=== PATIENT | male | born 1965 | race African-American/Black ===

== ENCOUNTER 2022-02-18 11:39 | Inpatient (IN) | payer SELFPAY ==
[~2022-02-18 11:39] MED LIST: Iopamidol 370 76% 100 ML VIAL ONE
[2022-02-18] MEDS ORDERED: Azithromycin 500 MG in Sodium Chloride 0.9% 250 ML 250 ML IVPB SCH (12:30)
[2022-02-18] MEDS ORDERED: cefTRIAXone\\ROCEPHIN 1 GM in Sodium Chloride 0.9% 100 ML IVPB SCH (12:30)
[2022-02-18] MEDS ORDERED: Furosemide 40 MG/4 ML VIAL SLOW IVP SCH (12:30)
[2022-02-18 13:34] LABS: CKMB 3.9 ng/mL (0-6.6)
[2022-02-18] MEDS ORDERED: FLU VACC QS2022-23(6MOS UP)/PF 60 MCG/0.5 ML SYRINGE IM ONE (14:15)
[2022-02-18] MEDS: methylPREDNISolone Sod Succ 40 MG VIAL IVP SCH (14:25)
[2022-02-18] MEDS: Heparin 5,000 UNITS/ML VIAL SC SCH ×2 (16:06→21:40)
[2022-02-18] MEDS ORDERED: Amlodipine 5 MG TAB PO SCH (17:00)
[2022-02-18 17:15] LABS: Creatinine, Urine Less than 20.00 mg/dL (63-166)
[2022-02-18] MEDS ORDERED: Piperacillin/Tazobactam 3.375 GM in Sodium Chloride 0.9% 100 ML IVPB SCH (18:00)
[2022-02-18] MEDS ORDERED: methylPREDNISolone Sod Succ 40 MG VIAL IVP SCH (18:00)
[2022-02-18] MEDS ORDERED: Furosemide 20 MG/2 ML VIAL SLOW IVP SCH (21:00)
[2022-02-18] MEDS: Famotidine 20 MG TAB PO SCH (21:15)
[2022-02-18] MEDS: Doxycycline 100 MG in Sodium Chloride 0.9% 100 ML IVPB SCH (21:16)
[2022-02-18 21:56] LABS: Potassium, Urine 16.7 mmol/L; Sodium, Urine 119 mmol/L (Not Available)
[2022-02-19] MEDS: Piperacillin/Tazobactam 3.375 GM in Sodium Chloride 0.9% 100 ML IVPB SCH ×3 (01:40→17:18)
[2022-02-19] MEDS: methylPREDNISolone Sod Succ 40 MG VIAL IVP SCH ×2 (02:11→14:38)
[2022-02-19 04:15] LABS: #Monocytes 0.7 10x3/uL (0.0-1.1); #Neutrophils 8.5 10x3/uL (1.5-8.4); %Basophils 0.2 % (0.0-2.0); %Lymphocytes 7.4 % (18.0-47.0); %Monocytes 7.3 % (0.0-10.0); %Neutrophils 84.5 % (40.0-75.0); Hemoglobin 11.4 g/dL (13.5-17.5); Mean Corpuscular Hemoglobin 28.9 pg (27.0-33.0); Mean Corpuscular Volume 90.4 fl (81.2-95.1); Mean Platelet Volume 9.1 fl (7.4-10.4); Platelet Count 321 10x3/uL (150-450); RBC Distribution Width 12.5 % (11.5-14.5); Red Blood Cell (RBC) Count 3.94 10x6/uL (4.32-5.72); White Blood Cell (WBC) Count 10.1 10x3/uL (3.5-10.5)
[2022-02-19 04:27] LABS: ALT (SGPT) 12 U/L (8-55); AST (SGOT) 13 U/L (5-34); Albumin 3.5 g/dL (3.5-5.0); Alkaline Phosphatase 55 U/L (40-110); Anion Gap 10 mmol/L (10-20); BUN (Urea Nitrogen) 17 mg/dL (8.4-25.7); Bilirubin, Total 0.3 mg/dL (0.2-1.2); Calc. Creatinine Clearance 126 mL/min (70-130); Calcium 9.3 mg/dL (7.8-10.44); Carbon Dioxide 32 mmol/L (22-29); Chloride 103 mmol/L (98-107); Estimated GFR 56; Globulin 3.3 g/dL (2.4-3.5); Glucose 164 mg/dL (70-105); Potassium 4.4 mmol/L (3.5-5.1); Protein, Total 6.8 g/dL (6.0-8.3); Sodium 141 mmol/L (136-145)
[2022-02-19] MEDS: hydrALAZINE 20 MG/ML VIAL SLOW IVP PRN (05:00)
[2022-02-19] MEDS ORDERED: cefTRIAXone\\ROCEPHIN 1 GM in Sodium Chloride 0.9% 100 ML IVPB SCH (09:30)
[2022-02-19] MEDS: Amlodipine 5 MG TAB PO SCH (10:03)
[2022-02-19] MEDS: Heparin 5,000 UNITS/ML VIAL SC SCH ×3 (10:06→20:48)
[2022-02-19] MEDS: Famotidine 20 MG TAB PO SCH ×2 (10:17→20:36)
[2022-02-19] MEDS ORDERED: Sodium Chloride 0.9% 100 ML ONE (10:19)
[2022-02-19] MEDS ORDERED: Azithromycin 500 MG in Sodium Chloride 0.9% 250 ML 250 ML IVPB SCH (10:30)
[2022-02-19] MEDS: Doxycycline 100 MG in Sodium Chloride 0.9% 100 ML IVPB SCH ×2 (12:05→22:30)
[2022-02-19] MEDS: Furosemide 40 MG/4 ML VIAL SLOW IVP SCH (14:39)
[2022-02-19 15:44] LABS: Legionella Urinary Ag Negative (Negative); Strep pneumo Urine Ag NEGATIVE (NEGATIVE)
[2022-02-20] MEDS: hydrALAZINE 20 MG/ML VIAL SLOW IVP PRN ×2 (01:14→05:52)
[2022-02-20] MEDS: Piperacillin/Tazobactam 3.375 GM in Sodium Chloride 0.9% 100 ML IVPB SCH ×4 (03:12→17:49)
[2022-02-20] MEDS: methylPREDNISolone Sod Succ 40 MG VIAL IVP SCH (03:12)
[2022-02-20 04:26] LABS: #Eosinphils 0.1 10x3/uL (0.0-0.5); #Monocytes 1.4 10x3/uL (0.0-1.1); #Neutrophils 8.3 10x3/uL (1.5-8.4); %Basophils 0.2 % (0.0-2.0); %Lymphocytes 11.4 % (18.0-47.0); %Monocytes 12.7 % (0.0-10.0); %Neutrophils 74.3 % (40.0-75.0); Hemoglobin 11.7 g/dL (13.5-17.5); Mean Corpuscular HGB CONC 32.4 g/dL (32.0-36.0); Mean Corpuscular Hemoglobin 29.1 pg (27.0-33.0); Mean Corpuscular Volume 89.8 fl (81.2-95.1); Mean Platelet Volume 9.1 fl (7.4-10.4); Platelet Count 343 10x3/uL (150-450); RBC Distribution Width 12.7 % (11.5-14.5); Red Blood Cell (RBC) Count 4.02 10x6/uL (4.32-5.72); White Blood Cell (WBC) Count 11.2 10x3/uL (3.5-10.5)
[2022-02-20 04:35] LABS: Anion Gap 13 mmol/L (10-20); BUN (Urea Nitrogen) 25 mg/dL (8.4-25.7); Calc. Creatinine Clearance 115 mL/min (70-130); Calcium 9.5 mg/dL (7.8-10.44); Carbon Dioxide 31 mmol/L (22-29); Chloride 103 mmol/L (98-107); Estimated GFR 54; Glucose 178 mg/dL (70-105); Sodium 143 mmol/L (136-145)
[2022-02-20] MEDS: Furosemide 40 MG/4 ML VIAL SLOW IVP SCH ×2 (05:52→14:32)
[2022-02-20] MEDS: Famotidine 20 MG TAB PO SCH ×2 (08:45→21:42)
[2022-02-20] MEDS: Heparin 5,000 UNITS/ML VIAL SC SCH ×3 (08:46→21:42)
[2022-02-20] MEDS: Amlodipine 5 MG TAB PO SCH (08:46)
[2022-02-20] MEDS: Doxycycline 100 MG in Sodium Chloride 0.9% 100 ML IVPB SCH (08:47)
[2022-02-20] MEDS ORDERED: Doxycycline 100 MG CAP PO SCH (11:00)
[2022-02-20] MEDS: Doxycycline 100 MG CAP PO SCH (21:42)
[2022-02-21] MEDS: Piperacillin/Tazobactam 3.375 GM in Sodium Chloride 0.9% 100 ML IVPB SCH ×3 (02:08→18:16)
[2022-02-21] MEDS: HYDROcodone/Acetaminophen 10/325 mg Tablet PO PRN ×4 (04:04→21:12)
[2022-02-21 04:52] LABS: #Basophils 0.1 10x3/uL (0.0-0.2); #Eosinphils 0.1 10x3/uL (0.0-0.5); #Monocytes 1.3 10x3/uL (0.0-1.1); #Neutrophils 5.7 10x3/uL (1.5-8.4); %Basophils 0.5 % (0.0-2.0); %Eosinophils 1.1 % (0.0-6.0); %Lymphocytes 24.4 % (18.0-47.0); %Monocytes 13.2 % (0.0-10.0); %Neutrophils 60.2 % (40.0-75.0); Hemoglobin 11.7 g/dL (13.5-17.5); Mean Corpuscular HGB CONC 32.1 g/dL (32.0-36.0); Mean Corpuscular Hemoglobin 28.8 pg (27.0-33.0); Mean Corpuscular Volume 89.9 fl (81.2-95.1); Mean Platelet Volume 9.3 fl (7.4-10.4); Platelet Count 370 10x3/uL (150-450); Red Blood Cell (RBC) Count 4.06 10x6/uL (4.32-5.72); White Blood Cell (WBC) Count 9.5 10x3/uL (3.5-10.5)
[2022-02-21 04:54] LABS: Anion Gap 14 mmol/L (10-20); BUN (Urea Nitrogen) 21 mg/dL (8.4-25.7); Calc. Creatinine Clearance 120 mL/min (70-130); Calcium 9.3 mg/dL (7.8-10.44); Carbon Dioxide 33 mmol/L (22-29); Chloride 103 mmol/L (98-107); Estimated GFR 57; Glucose 93 mg/dL (70-105); Potassium 3.5 mmol/L (3.5-5.1); Sodium 146 mmol/L (136-145)
[2022-02-21] MEDS: Furosemide 40 MG/4 ML VIAL SLOW IVP SCH ×2 (05:49→15:27)
[2022-02-21] MEDS: Heparin 5,000 UNITS/ML VIAL SC SCH ×4 (08:16→21:18)
[2022-02-21] MEDS: Doxycycline 100 MG CAP PO SCH ×2 (08:18→21:12)
[2022-02-21] MEDS: Amlodipine 5 MG TAB PO SCH (08:18)
[2022-02-21] MEDS: Famotidine 20 MG TAB PO SCH ×2 (08:18→21:00)
[2022-02-22] MEDS: Piperacillin/Tazobactam 3.375 GM in Sodium Chloride 0.9% 100 ML IVPB SCH ×3 (01:40→18:08)
[2022-02-22] MEDS: HYDROcodone/Acetaminophen 10/325 mg Tablet PO PRN ×3 (05:51→18:08)
[2022-02-22] MEDS: Furosemide 40 MG/4 ML VIAL SLOW IVP SCH ×2 (05:52→14:01)
[2022-02-22] MEDS: Amlodipine 5 MG TAB PO SCH (08:12)
[2022-02-22] MEDS: Heparin 5,000 UNITS/ML VIAL SC SCH ×3 (08:12→20:34)
[2022-02-22] MEDS: Doxycycline 100 MG CAP PO SCH ×2 (08:12→20:34)
[2022-02-22] MEDS: Famotidine 20 MG TAB PO SCH ×2 (08:13→20:34)
[2022-02-22 08:27] VITALS: BMI 46.5
[2022-02-22] MEDS: hydrALAZINE 20 MG/ML VIAL SLOW IVP PRN ×3 (14:01→21:58)
[2022-02-23] MEDS: Piperacillin/Tazobactam 3.375 GM in Sodium Chloride 0.9% 100 ML IVPB SCH (02:34)
[2022-02-23] MEDS: Furosemide 40 MG/4 ML VIAL SLOW IVP SCH (06:36)
[2022-02-23] MEDS: Famotidine 20 MG TAB PO SCH (08:37)
[2022-02-23] MEDS: Amlodipine 5 MG TAB PO SCH (08:38)
[2022-02-23] MEDS: Heparin 5,000 UNITS/ML VIAL SC SCH (08:38)
[2022-02-23] MEDS: Doxycycline 100 MG CAP PO SCH (08:38)
[2022-02-23 08:54] VITALS: BP 131/77; TEMP 98
== END 2022-02-23 09:25 | disposition home or self-care (01) | DRG 291 ==
LOC: CSHTELE 11:39
PROVIDERS: ADMIT Hospitalist; ATTEND Hospitalist
PROC: 5A09357 Assistance with Respiratory Ventilation, Less than 24 Consecutive Hours, Continuous Positive Airway Pressure (ICD-10-PCS; principal; 2022-02-18)
DX: I11.0 Hypertensive heart disease with heart failure (principal); I50.31 Acute diastolic (congestive) heart failure; J96.01 Acute respiratory failure with hypoxia; K57.92 Diverticulitis of intestine, part unspecified, without perforation or abscess without bleeding; N17.9 Acute kidney failure, unspecified; Z68.42 Body mass index [BMI] 45.0-49.9, adult; F41.9 Anxiety disorder, unspecified; F32.A Depression, unspecified; E66.01 Morbid (severe) obesity due to excess calories; J06.9 Acute upper respiratory infection, unspecified; G47.33 Obstructive sleep apnea (adult) (pediatric); K52.89 Other specified noninfective gastroenteritis and colitis
CPT/HCPCS: 36415; 71275; 74176; 80048; 80053; 82436; 82553; 82570; 83735; 83880; 84133; 84145; 84300; 85025; 87449; 87804; 87899; 93005; 93010; 93306; 93970; 94640; 94660; 94760; 94799; J0360; J0744; J1644; J1940; J2543; J2920; J3490; J7620; Q9967